=== PATIENT | female | born 1935 | race Caucasian/White ===

== ENCOUNTER 2018-08-29 12:23 | Inpatient (IN) | payer MEDICARE ==
[~2018-08-29] VITALS: Ht 170.1 cm; Wt 75.5 kg
--- NOTE | ~2018-08-29 | EKG ---
[place], [place] ELECTROCARDIOGRAM REPORT NAME: ELSA FALCON UNIT #: [id number] ROOM: 422 DOCTOR: JEIMY DRAFT REPORT BIRTHDATE: [birth year] [facility] Test Date: 2018-08-29 Test Time: 12:51:32 Pat Name: ELSA FALCON Department: Room: 422 Gender: F [employer] Car [employer]: EKG.[place] : 1935 Requested By: DAVID WOODS Order Number: [id number] Reading MD: John Gutierrez MD Measurements Intervals [place] Rate: 66 P: 61 DC: 189 QRS: 3 QRSD: 93 T: 148 QT: 427 QTc: 448 Interpretive Statements Sinus rhythm Abnrm T, consider ischemia, anterolateral lds Electronically Signed On 08-30-2018 14:32:53 PST by John Gutierrez MD CM:EKGRPT:ELECTROCARDIOGRAM REPORT [id number] 1432 DAVID ALMONTE DRAFT REPORT DAVID WOODS DO
--- NOTE | 2018-08-29 08:00 | NUR ---
PT HAS VERY SMALL SCABBED AREA TO LEFT LOWER LEG, DOES NOT WANT DRESSING APPLIED TO AREA
[2018-08-29 12:28] VITALS: BP 128/80
[2018-08-29] MEDS ORDERED: COREG3.125 MG PO (12:34)
[2018-08-29] MEDS ORDERED: ASPIRIN CHEWABL81 MG PO (12:34)
[2018-08-29] MEDS ORDERED: Ipratropium Brom3 ML INH (12:35)
[2018-08-29] MEDS ORDERED: PROTONIX TR40 M1 PO (12:36)
[2018-08-29] MEDS ORDERED: MELATONIN3 MG PO (12:36)
[2018-08-29] MEDS ORDERED: PLAVIX75 M1 PO (12:36)
[2018-08-29] MEDS ORDERED: POTASSIUM CHLO20 ME3 PO (12:37)
[2018-08-29] MEDS ORDERED: TESSALON PERLE100 MG PO (12:38)
--- NOTE | 2018-08-29 12:44 | NUR ---
PATIENT AWARE OF NEEDING URINE SPECIMEN. PATIENT REPORTS SHE JUST WENT PRIOR TO LEAVING RESIDENTIAL. WILL LET STAFF KNOW WHEN SHE CAN URINATE
[2018-08-29 13:05] LABS: BASO % 0.5 % (0.0-1.0); EOS # 0.2 10*3/uL (0.0-0.4); EOS % 2.9 % (1.0-4.0); HEMATOCRIT 34.5 % (37.0-47.0); HEMOGLOBIN 10.3 g/dl (12.0-16.0); LYMPH # 1.8 10*3/uL (1.3-4.4); LYMPH % 22.8 % (27.0-41.0); MEAN CORPUSCULAR HGB 28.4 pg (27.0-31.0); MEAN CORPUSCULAR HGB CONC 29.9 g/dl (33.0-37.0); MEAN PLATELET VOLUME 10.5 fl (9.6-12.3); MONO # 0.7 10*3/uL (0.1-1.0); MONO % 8.1 % (3.0-9.0); NEUT # 5.2 10*3/uL (2.3-7.9); NEUT % 65.3 % (47.0-73.0); PLATELET COUNT AUTOMATED 259 10*3/uL (130-400); RED BLOOD COUNT 3.63 10*6/uL (4.10-5.10); RED CELL DISTRI WIDTH 14.8 % (0-14.5)
[2018-08-29 13:15] LABS: ACT PARTIAL THROMBO TIME 24.5 SECONDS (20.8-31.5); INTERNATIONAL NORM RATIO 0.9 (2.0-3.5)
[2018-08-29 13:24] LABS: ALBUMIN 2.9 gm/dl (3.1-4.5); ALKALINE PHOSPHATASE 88 U/L (45-117); BUN 13 mg/dl (7-24); CHLORIDE 104 mmol/L (98-107); CREATININE 1.07 mg/dL (0.55-1.02); LIPASE 173 U/L (73-393); POTASSIUM 3.9 mmol/L (3.5-5.1); SGOT/AST 20 IU/L (3-35); SGPT/ALT 17 U/L (12-78); SODIUM 140 mmol/L (136-145); TOTAL PROTEIN 7.3 gm/dL (6.4-8.2)
[2018-08-29 13:26] LABS: TROPONIN I < 0.015 ng/ml (<0.045)
--- NOTE | 2018-08-29 13:56 | NUR ---
WARM BLAKET PROVIDED. PATIENT REPOSITIONED IN BED FOR COMFORT. DENIES ANY NEEDS AT THIS TIME. TALKING WITH SON AT BEDSIDE
[2018-08-29 14:06] LABS: BILIRUBIN NEGATIVE (NEGATIVE); BLOOD NEGATIVE (NEGATIVE); CLARITY SL CLOUDY (CLEAR); COLOR YELLOW (YELLOW); GLUCOSE NEGATIVE (NEGATIVE); KETONE NEGATIVE (NEGATIVE); LEUKO ESTERASE TRACE (NEGATIVE); NITRITE NEGATIVE (NEGATIVE); SPECIFIC GRAVITY 1.025 (1.005-1.030)
[2018-08-29 14:20] LABS: BACTERIA TRACE
[2018-08-29 14:30] VITALS: BP 164/73
--- NOTE | 2018-08-29 15:13 | NUR ---
PATIENT REFUSED PICTURE OF COCCYX
--- NOTE | 2018-08-29 15:32 | NUR ---
SPOKE WITH DOUG FROM [facility] TO NOTIFY OF PATIENT BEING ADMITTED
[2018-08-29 15:48] VITALS: BP 167/63
[2018-08-29 16:00] VITALS: BP 162/73
--- NOTE | 2018-08-29 16:00 | NUR ---
Time: 1600 A 82 year old FEMALE admitted to 4E under services of WALI NOBLE DO. Pt. arrived via stretcher from ER. Chief complaint: ABDOMINAL PAIN AND NAUSEA. 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 PT HAS A OPEN AREA TO RIGHT FOOT 2ND TOE, PER PATIENT FAMILY MEMBER WAS CLIPPING TOE NAILS AND CILPPED SKIN, NO TREATMENT WAS CURRENTLY BEING DONE AT [facility]. WILL NOTIFY PHYSICIAN OF WOUND CARE ORDERS NEEDED. MAYRA FRANCO
[2018-08-29] MEDS ORDERED: PROAIR HFA8.5 GM INH (16:43)
[2018-08-29] MEDS ORDERED: ANTACID SUSPEN355 M1 PO (16:45)
[2018-08-29] MEDS ORDERED: COUGH DM E30 MG/5 ML PO (16:46)
[2018-08-29] MEDS ORDERED: MILK OF MA400 MG/5 M PO (16:47)
[2018-08-29] MEDS ORDERED: MIRALAX17 GM PO (16:48)
[2018-08-29] MEDS ORDERED: NITROSTAT0.4 MG SL (16:50)
[2018-08-29] MEDS ORDERED: REFRESH TEARS15 ML OP (16:52)
[2018-08-29] MEDS ORDERED: SENNA LAX8.6 M1 PO (16:52)
[2018-08-29] MEDS ORDERED: TYLENOL325 M1 PO (16:53)
[2018-08-29] MEDS ORDERED: ZOFRAN8 M1 PO (16:53)
--- NOTE | 2018-08-29 16:55 | NUR ---
DR. GRAHAM AWARE OF WOUND TO 2ND TOE AND BUTTOCKS REDDENED. SHE WILL ENTER ORDER
[2018-08-29 20:00] VITALS: BP 158/90
--- NOTE | 2018-08-29 20:31 | NUR ---
PATIENT MEDICATED WITH 12.5MG OF PHENERGAN PER DR ORDERS FOR COMPLAINTS OF NAUSEA AT THIS TIME. RN WILL CONTINUE TO MONITOR
[2018-08-30] VITALS: BP 151/74
[2018-08-30 06:42] LABS: BASO % 0.5 % (0.0-1.0); EOS # 0.3 10*3/uL (0.0-0.4); EOS % 4.3 % (1.0-4.0); HEMATOCRIT 32.2 % (37.0-47.0); HEMOGLOBIN 9.6 g/dl (12.0-16.0); LYMPH # 1.7 10*3/uL (1.3-4.4); LYMPH % 29.6 % (27.0-41.0); MEAN CELL VOLUME 95.3 fl (81.0-99.0); MEAN CORPUSCULAR HGB 28.4 pg (27.0-31.0); MEAN CORPUSCULAR HGB CONC 29.8 g/dl (33.0-37.0); MEAN PLATELET VOLUME 10.9 fl (9.6-12.3); MONO # 0.7 10*3/uL (0.1-1.0); MONO % 11.6 % (3.0-9.0); NEUT # 3.2 10*3/uL (2.3-7.9); NEUT % 53.7 % (47.0-73.0); PLATELET COUNT AUTOMATED 244 10*3/uL (130-400); RED BLOOD COUNT 3.38 10*6/uL (4.10-5.10); RED CELL DISTRI WIDTH 14.6 % (0-14.5); WHITE BLOOD COUNT 5.9 10*3/uL (4.8-10.8)
[2018-08-30 06:58] LABS: ACT PARTIAL THROMBO TIME 25.2 SECONDS (20.8-31.5)
[2018-08-30 07:11] LABS: CHLORIDE 106 mmol/L (98-107); POTASSIUM 3.4 mmol/L (3.5-5.1); SODIUM 141 mmol/L (136-145)
[2018-08-30 07:38] LABS: BUN 9 mg/dl (7-24); CHOLESTEROL 157 mg/dL (<200); CREATININE 0.92 mg/dL (0.55-1.02); FREE T4 1.09 ng/dl (0.76-1.46); HDL CHOLESTEROL 42 mg/dl (40-60); LDL CHOLESTEROL 94 mg/dL (9-159); PHOSPHOROUS 2.5 mg/dL (2.5-4.9); TRIGLYCERIDES 106 mg/dl (<150); VLDL CHOLESTEROL 21 mg/dL (6-40)
[2018-08-30 08:00] VITALS: BP 169/73
--- NOTE | 2018-08-30 08:29 | NUR ---
[facility]. Patient is ok to return when medically stable for discharge.
[2018-08-30 09:38] LABS: VITAMIN D, 25-HYDROXY 18.3 ng/mL (30-100)
--- NOTE | 2018-08-30 10:00 | NUR ---
PHYSICAL THERAPY Patient evaluated on 4, full evaluation to follow. Continue with PT as per plan of care with fall, mod (A) x 2. left hemiparesis and alarm precautions. Return to SNF. PAtient is high complexity via chart review, test and evaluation: [id number]. Thank you for this referral. Juliette Carmichael,PT
--- NOTE | 2018-08-30 10:03 | NUR ---
ELSA FALCON [id number] Please refer to the physician's history and physical for past medical history, comorbid conditions, and allergies. Diagnosis: ACUTE KIDNEY INJURY ABDOMINAL PAIN Jose Score: 17,AT RISK WOUND DESCRIPTIONS: Location of the wound: right 2nd toe Thickness: Full Size: 0.2cm x 0.6cm x <0.1cm Tunneling: none Undermining: none Sinus Tract: none Presence of Exudate: none Amount: None Color: Brown, red Odor: None Periwound Skin Appearance: Erythema Wound edges: closed Pain (associated with wound): none at time of assessment How does patient state this happened? pt stated granddaughter cut her toenails and cut the tip of the toe 1 week ago. Coccyx is red and blanchable at time of assessment. No open areas noted. No drainage noted at time of assessment. Surface the patient is resting on: Isoflex SKIN PREVENTION RECOMMENDATION: 1. Pressure redistribution support surface as appropriate 2. Elevate heels 3. Remove boots/TEDS every shift and reapply 4. Head of bed 30 degrees as tolerated 5. Assess nutrition and hydration 6. Manage moisture 7. Avoid the use of containment devices while in bed 8. Use absorptive products on surfaces limit layers of linens on bed 9. Turn and reposition every 1-2 hours in bed and every 1 hour in chair as tolerated 10. Weight shifts every 15 minutes while up in chair 11. Offloading with pillows or device to keep heels elevated off bed 12. Monitor skin at least every shift 13. Inspect under medical devices twice a day WOUND TREATMENT RECOMMENDATIONS: Cleanse right 2nd toe with nss and apply sureprep around the wound antibiotic ointment tid. Cleanse coccyx with soap and water and apply hydraguard every shift and prn for soiling. Wheelchair cushion when oob. Heel raiser pro boots while in bed.
--- NOTE | 2018-08-30 10:30 | NUR ---
Occupational Therapy evaluation completed on 4 with full eval to follow. Precautions to include fall risk, bed alarm,max assist for transfers, left hemiparesis, diplopia, IV UE. Patient is high complexity level 52863 via chart review, testing and evaluation. Recommend OT per POC and SNF upon discharge. Thank you for this referral. Giovanna Lewis OTR/l
--- NOTE | 2018-08-30 10:53 | NUR ---
PT MEDICATED WITH REGLAN AT THIS TIME. PT STATES HER STOMACH IS "UPSET."
--- NOTE | 2018-08-30 11:23 | NUR ---
Dr. Traore notified of wound care recommendations.
[2018-08-30 12:00] VITALS: BP 164/86
[2018-08-30] MEDS ORDERED: REGLAN5 MG PO (14:11)
[2018-08-30] MEDS ORDERED: PHENERGAN25 M3 PO (14:12)
--- NOTE | 2018-08-30 15:05 | NUR ---
patient discharged to rehab suites, discharge information faxed, transportation scheduled for 4 PM with [facility] [place] and nursing notified.
--- NOTE | 2018-08-30 16:12 | NUR ---
PT TRANSPORTED AT THIS TIME BACK TO REHAB SUIT[facility] AT [facility]. REPORT GIVEN TO NURSE THERE. VSS. HEPLOCK DISCONTINUED. DISCHARGE PACKET GIVEN TO EMT.
== END 2018-08-30 16:12 | disposition other institution (70) | DRG 391 ==
LOC: ED 12:23 → EDHOLD 14:48 → 4E 14:48
PROVIDERS: Emergency Medicine; Student in an Organized Health Care Education/Training Program; ADMIT Internal Medicine
DX: R10.9 Unspecified abdominal pain (principal); N17.0 Acute kidney failure with tubular necrosis; R04.2 Hemoptysis; E44.0 Moderate protein-calorie malnutrition; I69.359 Hemiplegia and hemiparesis following cerebral infarction affecting unspecified side; D64.9 Anemia, unspecified; D72.810 Lymphocytopenia; R79.82 Elevated C-reactive protein (CRP); I10 Essential (primary) hypertension; I00 Rheumatic fever without heart involvement; K21.9 Gastro-esophageal reflux disease without esophagitis; I25.10 Atherosclerotic heart disease of native coronary artery without angina pectoris; Z88.6 Allergy status to analgesic agent; Z90.49 Acquired absence of other specified parts of digestive tract; Z90.710 Acquired absence of both cervix and uterus; I25.2 Old myocardial infarction; Z85.118 Personal history of other malignant neoplasm of bronchus and lung; Z83.3 Family history of diabetes mellitus; Z82.0 Family history of epilepsy and other diseases of the nervous system; Z79.82 Long term (current) use of aspirin; Z79.899 Other long term (current) drug therapy; Z68.26 Body mass index [BMI] 26.0-26.9, adult

== ENCOUNTER 2018-10-16 12:04 | Emergency (ER) | payer MEDICARE ==
[~2018-10-16] VITALS: Ht 172.7 cm; Wt 75.3 kg
[~2018-10-16 12:04] MED LIST: ANTACID SUSPEN355 M1 PO; ASPIRIN CHEWABL81 MG PO; COREG3.125 MG PO; COUGH DM E30 MG/5 ML PO; Ipratropium Brom3 ML INH; MELATONIN3 MG PO; MILK OF MA400 MG/5 M PO; MIRALAX17 GM PO; NITROSTAT0.4 MG SL; PHENERGAN25 M3 PO; PLAVIX75 M1 PO; POTASSIUM CHLO20 ME3 PO; PROAIR HFA8.5 GM INH; PROTONIX TR40 M1 PO; REFRESH TEARS15 ML OP; REGLAN5 MG PO; SENNA LAX8.6 M1 PO; TESSALON PERLE100 MG PO; TYLENOL325 M1 PO; ZOFRAN8 M1 PO
[2018-10-16] MEDS ORDERED: DOK COLACE100 MG PO (12:35)
[2018-10-16] MEDS ORDERED: Ipratropium Brom3 ML INH (12:36)
[2018-10-16] MEDS ORDERED: LISINOPRIL40 MG PO (12:37)
[2018-10-16] MEDS ORDERED: PANTOPRAZOLE SO40 MG PO (12:37)
[2018-10-16] MEDS ORDERED: NORVASC5 MG PO (13:06)
== END 2018-10-16 13:57 | disposition home or self-care (01) ==
LOC: ED 12:04
DX: I10 Essential (primary) hypertension (principal); K59.00 Constipation, unspecified; I25.10 Atherosclerotic heart disease of native coronary artery without angina pectoris; K21.9 Gastro-esophageal reflux disease without esophagitis; M06.9 Rheumatoid arthritis, unspecified; I25.2 Old myocardial infarction; Z86.73 Personal history of transient ischemic attack (TIA), and cerebral infarction without residual deficits; Z88.6 Allergy status to analgesic agent; Z88.5 Allergy status to narcotic agent; Z88.8 Allergy status to other drugs, medicaments and biological substances; Z79.82 Long term (current) use of aspirin; Z79.899 Other long term (current) drug therapy; Z90.49 Acquired absence of other specified parts of digestive tract; Z90.710 Acquired absence of both cervix and uterus